=== PATIENT | female | born 1995 | race Caucasian/White ===

== ENCOUNTER 2017-01-27 05:45 | Observation (INO) | payer MEDICAID, MEDICARE ==
[~2017-01-27] VITALS: Ht 170.2 cm; Wt 88.0 kg
[2017-01-27] MEDS ORDERED: PNV-DHA1 SGL PO (06:40)
[2017-01-27 06:54] VITALS: BP 123/65
[2017-01-27 08:55] VITALS: BP 117/72
== END 2017-01-27 09:05 | disposition home or self-care (01) ==
LOC: MFCC 05:45
PROVIDERS: ADMIT Obstetrics & Gynecology; ATTEND Obstetrics & Gynecology
DX: O36.8120 Decreased fetal movements, second trimester, not applicable or unspecified (principal); Z3A.22 22 weeks gestation of pregnancy
CPT/HCPCS: 76805; G0378; Q0092